=== PATIENT | female | born 1955 | race African-American/Black ===

== ENCOUNTER 2019-12-18 16:13 | Outpatient (CLI) | payer MEDICAID, OTHER ==
--- NOTE | 2019-12-18 16:40 | RAD ---
Chest 2 views HISTORY: Dyspnea. COMPARISON: 08/10/2019. FINDINGS: Cardiac silhouette is enlarged. Pulmonary vasculature are unremarkable. Mediastinum is midline. No confluent airspace consolidation, pneumothorax, or pleural fluid evident. IMPRESSION : Cardiomegaly, stable. No active cardiopulmonary abnormalities are otherwise demonstrated.
== END 2019-12-18 16:14 | disposition home or self-care (01) ==
LOC: NAV RAD 16:13
PROVIDERS: ATTEND Obstetrics & Gynecology Gynecologic Oncology
DX: C54.1 Malignant neoplasm of endometrium (principal); I51.7 Cardiomegaly
CPT/HCPCS: 71046